=== PATIENT | female | born 2005 | race Caucasian/White ===

== ENCOUNTER 2023-02-04 17:56 | Emergency (ER) | payer BC, SELFPAY ==
[2023-02-04 17:56] VITALS: BP 121/68; PULSE 79; RESP 18; TEMP 37.3; O2SAT 99; BMI 22.1
[2023-02-04 18:26] LABS: Microscopic, Urine URINE MICROSCOPIC (MICROSCOPIC)
[2023-02-04 18:30] LABS: Appearance,Urine SL CLOUDY (Clear); Bilirubin,Urine Negative (Negative); Blood, Urine TRACE-I (Negative); Color,Urine YELLOW (Yellow); Glucose,Urine (UA) Negative (Negative); Ketones,Urine TRACE (Negative); Leukocyte Esterase,Urine 2+ (Negative); Nitrate,Urine Negative (Negative); Protein,Urine TRACE (Negative); Specific Gravity, Urine >= 1.030 (1.005-1.030); Urobilinogen,Urine 0.2 EU/dl (0.2)
--- NOTE | 2023-02-04 18:40 | EXP.UTC ---
Discharge Plan Disposition Patient Disposition: Home, Self-Care Condition: Good Prescriptions Prescriptions: New phenazopyridine [Pyridium] 200 mg tablet 200 mg PO Q8H 2 Days Qty: 6 0RF ciprofloxacin HCl [Cipro] 500 mg tablet 500 mg PO BID 7 Days Qty: 14 0RF mupirocin 2 % ointment 1 applic topical TID 7 Days Qty: 15 0RF No Action cephalexin 500 mg capsule 50 mg PO BID Patient Comments: TAKE 1 CAPSULE BY MOUTH EVERY 12 HOURS FOR 7 DAYS DIRECTED Referrals Follow up/Referrals: Patrice Tirado [Primary Care Provider] - See instructions Activity Restrictions/Add. Instructions Additional Instructions/Restrictions: Drink plenty of fluids. Take tylenol or ibuprofen for pain or fever. Stop the cephalexin that you are already on and start the cipro antibiotic. Take the medications as directed. Follow up with your regular doctor. GO TO THE ER FOR ANY WORSENING SYMPTOMS The pyridium will make your urine turn orange, this is an expected side effect. It will stain your clothes if it comes into contact with them. We will culture the urine. That will tell what bacteria is causing your infection and which antibiotics will treat it best. Sometimes the first antibiotic we prescribe turns out to not work against different bacteria. So, make sure you follow up within 3 days if you are not getting better. Clinical Impressions Clinical Impression: UTI (urinary tract infection), Folliculitis, Pharyngitis Instructions Patient Instructions: Urinary Tract Infection, DI for Strep Throat, DI for Folliculitis Discharge ED Provider: Eder Carrillo [facility] General Stated complaint: burning sensation when urinating Mode of Arrival: Ambulatory Source of Information: Patient Limitations: No Limitations Time Seen by Provider: 02/04/23 18:40 Description of Symptoms (Recalled from Triage Doc. by RN): Starting wed it che with urination, urinating blood, and has bumps present. She did stated that she shaved her pubic area and thinks they're in relation to that. She tested strep + and is currently on cephalexin. HEENT Symptoms (Recalled from RN notes): No Resp Symptoms (Recalled from RN notes): No Skin Symptoms (Recalled from RN notes): No MS Symptoms (Recalled from RN notes): No Functional Status (Recalled from RN notes): n/a History of Present Illness Provider Complaint: She states that for the past 3 days she has had sore throat, burning with urination, and multiple sore bumps on her pubic area. She was in [place] when her symptoms started. She went to a [facility] there and was started on keflex 2 days ago. She states that since then she has got worse instead of better. Her back is hurting worse and her urinary symptoms are getting worse. Related Data Home Medications Medication Instructions Recorded Confirmed cephalexin 500 mg capsule 50 mg PO BID abx 02/04/23 02/04/23 Previous Rx's Medication Instructions Recorded ciprofloxacin HCl 500 mg tablet 500 mg PO BID 7 days #14 tabs 02/04/23 (Cipro) mupirocin 2 % topical ointment 1 applic topical TID 7 days #15 02/04/23 grams phenazopyridine 200 mg tablet 200 mg PO Q8H 2 days #6 tabs 02/04/23 (Pyridium) Allergies Allergy/AdvReac Type Severity Reaction Status Date / Time No Known Allergies Allergy Verified 02/04/23 18:23 Worker's Comp Is this a Worker's Comp case?: No PFSH [facility] Disclaimer: The information contained in this section may have been updated after the patient was seen, as this information can be updated by other users. Social History Smoking Status: Never smoker alcohol intake: never current occupational status: student Travel in the last 8 weeks: None ROS Obtained: Yes All systems reviewed & no additional complaints except as documented Constitutional Constitutional: Denies chills and Denies fever(s) Eyes Eyes: Denies eye discharge ENT Ears, Nose, Mouth, and Throat: Reports as per HPI
[2023-02-04 18:49] LABS: Bacteria,Urine Trace /lpf
[2023-02-04 19:03] VITALS: BP 121/68; PULSE 79; RESP 18; TEMP 37.3; O2SAT 99
== END 2023-02-04 19:03 | disposition home or self-care (01) ==
PROVIDERS: Emergency Provider Nurse Practitioner Family; PCP Pediatrics
DX: N39.0 Urinary tract infection, site not specified (principal); M54.59 Other low back pain; J02.9 Acute pharyngitis, unspecified; L73.9 Follicular disorder, unspecified
CPT/HCPCS: 81001; 87086; 99204; 99212; G0463

== ENCOUNTER 2024-03-19 16:51 | Emergency (ER) | payer BC, SELFPAY ==
--- NOTE | 2024-03-19 17:41 | EXP.UTC ---
Discharge Plan Disposition Patient Disposition: Home, Self-Care Condition: Good Prescriptions Prescriptions: New phenazopyridine 200 mg Tablet 200 mg PO TID 2 Days Qty: 6 0RF cephalexin 500 mg capsule 500 mg PO QID 7 Days Qty: 40 0RF mupirocin 2 % ointment 1 applic topical TID 7 Days Qty: 15 0RF No Action cephalexin 500 mg capsule 50 mg PO BID Patient Comments: TAKE 1 CAPSULE BY MOUTH EVERY 12 HOURS FOR 7 DAYS DIRECTED phenazopyridine [Pyridium] 200 mg tablet 200 mg PO Q8H 2 Days Qty: 6 0RF ciprofloxacin HCl [Cipro] 500 mg tablet 500 mg PO BID 7 Days Qty: 14 0RF mupirocin 2 % ointment 1 applic topical TID 7 Days Qty: 15 0RF Referrals Follow up/Referrals: Patrice Tirado [Primary Care Provider] - See instructions Activity Restrictions/Add. Instructions Additional Instructions/Restrictions: Drink plenty of fluids. Take tylenol or ibuprofen for pain or fever. Take the medications as directed. Follow up with your regular doctor. GO TO THE ER FOR ANY WORSENING SYMPTOMS The pyridium will make your urine turn orange, this is an expected side effect. It will stain your clothes if it comes into contact with them. We will culture the urine. That will tell what bacteria is causing your infection and which antibiotics will treat it best.This test takes 3 days to complete. Apply the mupirocin ointment as directed to the affected areas of folliculitis. Clinical Impressions Clinical Impression: UTI (urinary tract infection), Folliculitis Stand Alone Forms Stand Alone Forms: Work/School Release Instructions Patient Instructions: DI for Folliculitis Print Language Print Language: Khmer Discharge ED Provider: Eder Carrillo [facility] General Stated complaint: poss UTI Time Seen by Provider: 03/19/24 17:41 Related Data Home Medications ?Medication ?Instructions ?Recorded ?Confirmed cephalexin 500 mg capsule 50 mg PO BID abx 02/04/23 02/04/23 Previous Rx's ?Medication ?Instructions ?Recorded ciprofloxacin HCl 500 mg tablet 500 mg PO BID 7 days #14 tabs 02/04/23 (Cipro) mupirocin 2 % topical ointment 1 applic topical TID 7 days #15 02/04/23 grams phenazopyridine 200 mg tablet 200 mg PO Q8H 2 days #6 tabs 02/04/23 (Pyridium) cephalexin 500 mg capsule 500 mg PO QID 7 days #40 caps 03/19/24 mupirocin 2 % topical ointment 1 applic topical TID 7 days #15 03/19/24 grams phenazopyridine 200 mg tablet 200 mg PO TID 2 days #6 tabs 03/19/24 Allergies Allergy/AdvReac Type Severity Reaction Status Date / Time No Known Allergies Allergy Verified 02/04/23 18:23 [facility] Disclaimer: The information contained in this section may have been updated after the patient was seen, as this information can be updated by other users. Social History (Updated 02/04/23 @ 19:02 by Eder Carrillo APRN) Smoking Status: Never smoker alcohol intake: never current occupational status: student Travel in the last 8 weeks: None ROS Obtained: Yes All systems reviewed & no additional complaints except as documented Constitutional Constitutional: Reports system reviewed and no additional complaints, except as documented, Denies chills and Denies fever(s) Eyes Eyes: Denies eye discharge ENT Ears, Nose, Mouth, and Throat: Denies dysphagia, Denies sore throat and Denies throat swelling Cardiovascular Cardiovascular: Denies chest pain and Denies dyspnea Respiratory Respiratory: Denies chest congestion, Denies cough and Denies dyspnea Gastrointestinal Gastrointestingal: Denies abdominal pain, constipation, diarrhea, dysphagia, nausea or vomiting Genitourinary Female Genitourinary: Reports as per HPI, Reports dysuria, Reports sexual dysfunction, Reports urinary frequency, Denies urinary incontinence and Reports urinary hesitancy Musculoskeletal Musculoskeletal: Denies arthralgias and Reports back pain Integumentary/Breasts Skin/Breast: Denies rash Neurologic Neurologic: Denies paresthesias Allergic/Immunologic Allergic/Immunologic: Denies throat swelling Physical Exam General General appearance: alert and in no apparent distress Head Head exam: atraumatic and normocephalic Eye Eye exam: Present normal appearance, PERRL and EOMI ENT ENT exam: Present normal exam, mucous membranes moist, TM's normal bilaterally and normal external ear exam Neck Neck exam: Present normal inspection, full ROM and trachea midline; Absent tenderness, meningismus or lymphadenopathy Chest Chest inspection: Present normal inspection and symmetric chest wall rise; Absent tenderness Respiratory Respiratory exam: Present normal lung sounds bilaterally; Absent respiratory distress, wheezes or stridor Cardiovascular Cardiovascular exam: Present regular rate, normal rhythm and normal heart sounds Abdominal Exam Abdominal exam: Present soft and normal bowel sounds; Absent distention, tenderness, guarding, rebound, rigidity, incision, psoas sign, obturator sign, heel tap sign, Shoemaker's sign, Rovsing's sign or tenderness at McBurney's Point Extremities Exam Extremities exam: Present normal inspection, full ROM and normal capillary refill; Absent tenderness, edema, joint swelling, calf tenderness or cyanosis Back Exam Back exam: Present normal inspection and full ROM; Absent tenderness, CVA tenderness (R) or CVA tenderness (L) Neurological Exam Neurological exam: Present alert, oriented X3 and normal gait Psychiatric Psychiatric exam: Present normal affect and normal mood Skin Skin exam: Present warm, dry, intact and normal color Lymphatic Lymphatic Findings: no adenopathy Medical Decision Making Medical Records Medical records reviewed: No I reviewed the patient's medical records. Screening: Per USPSTF and CDC recommendations, given the prevalence of disease in our region, it is our hospital?s policy to screen for HIV and viral Hepatitis for all patients aged 18 and over and those with ongoing risk factors. Rbyn Inquiry Pt receiving controlled substance: No Lab Data Lab results reviewed: Yes I reviewed the patient's lab results.
[2024-03-19 17:45] VITALS: BP 133/86; PULSE 77; RESP 20; TEMP 37; O2SAT 98; BMI 26.3
[2024-03-19 17:58] LABS: Color,Urine Yellow (Yellow)
[2024-03-19 17:59] LABS: Apearance,Urine Cloudy (Clear); Bilirubin,Urine Negative (Negative); Blood, Urine Negative (Negative); Glucose,Urine (UA) Negative (Negative); Ketones,Urine Negative (Negative); Protein,Urine 2+ (Negative); UTC Leukocyte Esterase,Urine Trace (Negative); UTC Nitrate,Urine Negative (Negative); Urobilinogen,Urine 0.2 EU/dl (0.2)
[2024-03-19 18:02] VITALS: BP 133/86; PULSE 77; RESP 20; TEMP 37; O2SAT 98
== END 2024-03-19 18:06 | disposition home or self-care (01) ==
PROVIDERS: Emergency Provider Nurse Practitioner Family; PCP Pediatrics
DX: N39.0 Urinary tract infection, site not specified (principal)
CPT/HCPCS: 81003; 87086; 87088; 87186; 99213; G0381

== ENCOUNTER 2024-05-14 11:53 | Emergency (ER) | payer BC, SELFPAY ==
[2024-05-14 12:08] VITALS: BP 126/80; PULSE 82; RESP 18; TEMP 36.6; O2SAT 100; BMI 26.3
[2024-05-14 12:14] LABS: Apearance,Urine Clear (Clear); Color,Urine Yellow (Yellow); PH,Urine 5.5 (5.0-8.5)
[2024-05-14 12:15] LABS: Bilirubin,Urine Negative (Negative); Blood, Urine Trace (Negative); Glucose,Urine (UA) Negative (Negative); Ketones,Urine Negative (Negative); Protein,Urine Negative (Negative); UTC Leukocyte Esterase,Urine 1+ (Negative); UTC Nitrate,Urine Negative (Negative); Urobilinogen,Urine 0.2 EU/dl (0.2)
[2024-05-14 12:16] LABS: UTC Strep Screen (Rapid) Negative (Negative)
--- NOTE | 2024-05-14 12:20 | ED_ITS ---
Discharge Plan Disposition Patient Disposition: Home, Self-Care Condition: Good Prescriptions Prescriptions: New cefdinir 300 mg capsule 300 mg PO BID Qty: 20 0RF Referrals Follow up/Referrals: Patrice Tirado [Primary Care Provider] - See instructions Activity Restrictions/Add. Instructions Additional Instructions/Restrictions: Increase fluids, water and not soda or tea. Can drink cranberry juice or cranberry extract. Wipe front to back Wear cotton underwear Empty bladder after intercourse Start antibiotics immediately and make sure you take the full course although you may start to see improvement over the next 48 hours. You can eat yogurt or take probiotics to decrease diarrhea or yeast infection caused by the antibiotic Be sure to follow-up anytime for new or worsening symptoms in 48 hours for wound urine culture results be sure to let you PCP no recent urine for culture so they can request records and ensure that you have appropriate antibiotic if you are not getting better or getting worse. If symptoms worsen or do not improve return or be seen in the ER. Follow-up with primary care this week. Clinical Impressions Clinical Impression: UTI (urinary tract infection), Pharyngitis Instructions Patient Instructions: DI for Urinary Tract Infection (UTI), DI for Pharyngitis/Tonsillopharyngitis -- Adult Print Language Print Language: Eritrean Discharge ED Provider: Rafael ([facility])Gildardo [facility] HPI General Stated complaint: sore throat, cough Mode of Arrival: Ambulatory Source of Information: Patient Time Seen by Provider: 05/14/24 12:07 Description of Symptoms (Recalled from Triage Doc. by RN): SORE THROAT, UTI S/S HEENT Symptoms (Recalled from RN notes): Yes Resp Symptoms (Recalled from RN notes): No Skin Symptoms (Recalled from RN notes): No MS Symptoms (Recalled from RN notes): No Functional Status (Recalled from RN notes): WNL History of Present Illness Provider Complaint: 18-year-old female presents for sore throat, nasal irritation, and burning with urination Related Data Previous Rx's ?Medication ?Instructions ?Recorded cefdinir 300 mg capsule 300 mg PO BID #20 caps 05/14/24 Allergies Allergy/AdvReac Type Severity Reaction Status Date / Time No Known Allergies Allergy Verified 02/04/23 18:23 Worker's Comp Is this a Worker's Comp case?: No [facility] Disclaimer: The information contained in this section may have been updated after the patient was seen, as this information can be updated by other users. Surgical History , ACCOUNT MANAGER) Hx of cardiac cath Social History , ACCOUNT MANAGER) Smoking Status: Never smoker alcohol intake: never current occupational status: student Travel in the last 8 weeks: None Have you lived/traveled outside US in past 30 days?: No Contact w/someone who lives/traveled outside US past 30 days?: No Exposure to someone with infectious disease in past 14 days?: No Do you have a fever (greater than 100.4 F or 38 C)?: No Have you tested positive for COVID-19: No Exposed to someone with COVID-19 in past 14 days?: No Do you have a sore throat?: Yes Do you have a cough?: Yes Do you have any weakness?: No Do you have any diarrhea?: No Are you experiencing any unusual bleeding?: No Do you have any muscle aches/pain?: No Do you have any abdominal pain?: No Are you experiencing loss of taste or smell?: No ROS Obtained: Yes Systems reviewed as appropriate & no additional complaints except as documented Constitutional Constitutional: Reports system reviewed and no additional complaints, except as documented and Reports as per HPI ENT Ears, Nose, Mouth, and Throat: Reports system reviewed and no additional complaints, except as documented, Reports as per HPI and Reports sore throat Genitourinary Female Genitourinary: Reports system reviewed and no additional complaints, except as documented, Reports as per HPI and Reports dysuria Physical Exam General General appearance: alert and in no apparent distress Eye Eye exam: Present normal appearance ENT ENT exam: Present normal oropharynx, mucous membranes moist and TM's normal bilaterally Expanded ENT Exam Comment: Pharynx red Respiratory Respiratory exam: Present normal lung sounds bilaterally Cardiovascular Cardiovascular exam: Present regular rate and normal rhythm Abdominal Exam Abdominal exam: Present soft Back Exam Back exam: Absent CVA tenderness (R) or CVA tenderness (L) Neurological Exam Neurological exam: Present alert and oriented X3 Skin Skin exam: Present warm and intact Medical Decision Making Medical Records Medical records reviewed: Yes I reviewed the patient's medical records. Screening: Per USPSTF and CDC recommendations, given the prevalence of disease in our region, it is our hospital?s policy to screen for HIV and viral Hepatitis for all patients aged 18 and over and those with ongoing risk factors. Bryn Inquiry Pt receiving controlled substance: No Vital Signs: 05/14/24 12:08 Temperature 97.9 F Temperature Source Oral Pulse Rate [Left Radial] 82 Respiratory Rate 18 Blood Pressure [Left Arm] 126/80 Blood Pressure Mean [Left Arm] 95 02 Sat by Pulse Oximetry 100 Lab Data Lab results reviewed: Yes I reviewed the patient's lab results. Lab Results 05/14/24 12:11: Urine Color Yellow, Urine Appearance Clear, Urine pH 5.5, Ur Specific [place] 1.030, Urine Protein Negative, Urine Glucose (UA) Negative, Urine Ketones Negative, Urine Blood Trace, Urine Nitrate Negative, Urine Bilirubin Negative, Urine Urobilinogen 0.2, Ur Leukocyte Esterase 1+ A, Strep Scn Rapid Clinic Negative Orders (Tests/Meds): ORDERS Category Date Time Status Strep Screen Confirmation Stat Micro 05/14/24 12:11 Received Urine Culture Stat Micro 05/14/24 12:06 Received
[2024-05-14 12:26] VITALS: BP 126/80; PULSE 82; RESP 18; TEMP 36.6
--- NOTE | 2024-05-18 16:20 | PC.NURSE ---
REVIEWED PATIENT'S URINE AND THROAT CULTURES WITH Rayo KRISHNAN APRN. PATIENT IS CURRENTLY ON CEFDINIR. NO CHANGES NEEDED AT THIS TIME
== END 2024-05-14 12:27 | disposition home or self-care (01) ==
PROVIDERS: Emergency Provider Nurse Practitioner Family; PCP Pediatrics
DX: N39.0 Urinary tract infection, site not specified (principal); J02.9 Acute pharyngitis, unspecified
CPT/HCPCS: 81003; 87070; 87077; 87086; 87088; 87186; 87880; 99213; G0381

== ENCOUNTER 2025-02-04 19:52 | Emergency (ER) | payer BC, SELFPAY ==
[2025-02-04 19:58] VITALS: BP 120/80; PULSE 82; RESP 18; TEMP 36.8; O2SAT 99; BMI 26.5
--- NOTE | 2025-02-04 20:02 | PC.NURSE ---
Pt states she is unable to leave a urine sample at this time.
--- NOTE | 2025-02-04 20:21 | CT_ITS ---
PROCEDURE INFORMATION: Exam: CT Abdomen And Pelvis With Contrast Exam date and time: 02/04/2025 9:57 PM Age: 19 years old Clinical indication: Abdominal pain; Additional info: Right flank and abd pain TECHNIQUE: Imaging protocol: Computed tomography of the abdomen and pelvis with contrast. Radiation optimization: All CT scans at this facility use at least one of these dose optimization techniques: automated exposure control; mA and/or kV adjustment per patient size (includes targeted exams where dose is matched to clinical indication); or iterative reconstruction. Contrast material: ISOVUE; Contrast volume: 75 ml; Contrast route: IV; COMPARISON: No relevant prior studies available. FINDINGS: Lungs: The visualized lung bases demonstrate no focal infiltrates or pleural effusions. Liver: The liver appears within normal limits. Gallbladder and biliary ducts: Normal. No calcified stones. No ductal dilation. Pancreas: The pancreas is normal. Spleen: The spleen is normal. Adrenal glands: The adrenal glands appear within normal limits. Kidneys and ureters: 1 mm nonobstructing stone right kidney lower pole. Otherwise kidneys normal. Stomach and bowel: The stomach appears within normal limits. No wall thickening or inflammatory change. Appendix: No evidence of appendicitis. Intraperitoneal space: No free air. No evidence for focal fluid collection or ascites. No evidence for omental thickening. Vasculature: Unremarkable. No abdominal aortic aneurysm. Lymph nodes: Unremarkable. No enlarged lymph nodes. Urinary bladder: The bladder appears within normal limits. No wall thickening. Reproductive: The uterus and adnexal structures appear normal. Bones/joints: Mild levo rotary scoliosis lumbar spine. Partially visualized postoperative changes left hip. Soft tissues: Unremarkable. IMPRESSION: 1. No acute inflammatory process identified within the abdomen or pelvis. 2. 1 mm nonobstructing stone right kidney lower pole. Otherwise kidneys normal.
[2025-02-04 20:34] LABS: Microscopic, Urine URINE MICROSCOPIC (MICROSCOPIC)
[2025-02-04 20:36] LABS: Hematocrit 39.6 % (37.0-47.0); Hemoglobin 13.0 g/dL (12.2-16.2); Immature Granulocytes % 0.1 %; Mean Corpuscular HGB Conc 32.8 g/dL (31.8-35.4); Mean Corpuscular Hemoglobin 28.1 pg (27.0-31.2); Mean Corpuscular Volume 85.7 fl (81-99); Nucleated Red Blood Cells % 0 %; Platelet Count 344 K/mm3 (142-424); Red Blood Count 4.62 M/mm3 (4.20-5.40); Red Cell Distribution Width-SD 40.3 fL; White Blood Count 9.7 K/mm3 (4.8-10.8)
[2025-02-04 20:38] LABS: Bilirubin,Urine Negative (Negative); Color,Urine YELLOW (Yellow); Glucose,Urine (UA) Negative (Negative); Ketones,Urine Negative (Negative); Leukocyte Esterase,Urine Negative (Negative); PH,Urine 5.5 (5.0-8.5); Protein,Urine Negative (Negative); Specific Gravity, Urine <= 1.005 (1.005-1.030); Urobilinogen,Urine 0.2 EU/dl (0.2)
[2025-02-04 20:45] LABS: Albumin Level 4.8 g/dl (3.5-5.0); Chloride 97 mmol/L (98-107)
[2025-02-04 20:46] LABS: Potassium 3.6 mmoL/L (3.5-5.1); Sodium 137 mmol/L (136-145)
[2025-02-04 20:48] LABS: Alanine Aminotransferase 15 U/L (12-78); Albumin/Globulin Ratio 1.2 (1.1-1.8); Alkaline Phosphatase 112 U/L (38-126); Anion Gap 15.6 mEq/L (5-15); Aspartate Amino Transferase 27 U/L (14-36); Bilirubin,Total 0.2 mg/dl (0.2-1.3); Carbon Dioxide 28 mmol/L (22.0-30.0); Globulin 4.1 g/dL (1.3-3.2); HCG Qualitative, Serum Negative (Negative); Lipase 167 U/L (23-300); Total Protein,Serum 8.9 g/dl (6.3-8.2)
[2025-02-04 20:49] LABS: Calcium 9.6 mg/dl (8.4-10.2); Glucose 87 mg/dl (74-100)
[2025-02-04 21:12] LABS: Bacteria,Urine Trace /lpf; RBC,Urine Occasional #/hpf (0-3); WBC,Urine Occasional #/hpf (0-3)
[2025-02-04 21:31] LABS: Blood Urea Nitrogen 6 mg/dl (7-17); Creatinine Clearance Estimated 115 mL/min (50-200); Creatinine,Serum 0.80 mg/dl (0.52-1.04); Estimated Glomerular Filt Rate 91 ml/min (>60); GFR (African American) 110 ML/MIN (>60)
[2025-02-04] MEDS: SODIUM CHLORIDE 0.9% 10ML SYR (RAD ONLY) 10 ML IV (21:57)
[2025-02-04] MEDS: IOPAMIDOL-370 (76%);100ML BOTTLE 75 ML IV (21:57)
--- NOTE | 2025-02-04 23:13 | ED_ITS ---
Discharge Plan Disposition Patient Disposition: Home, Self-Care Condition: Good Prescriptions Prescriptions: New methocarbamol 750 mg tablet 1,500 mg PO TID 7 Days Qty: 42 0RF Referrals Follow up/Referrals: Provider,Referral, MD [Primary Care Provider, Medical] - See instructions Activity Restrictions/Add. Instructions Additional Instructions/Restrictions: You may take robaxin to assist with pain relief. You can take 1500 mg up to three times daily for symptomatic control. If you experience worsening flank pain, urinary sympotms, fevers, or migratory pain into the lower quadrants please return to the ER for further evaluation. Clinical Impressions Clinical Impression: Abdominal wall pain Instructions Patient Instructions: DI for Acute Abdominal Pain Print Language Print Language: Irish Discharge ED Provider: Virgilio Lopez Adult HPI General Chief complaint: Abdominal Pain Stated complaint: abdominal pain and back pain Time Seen by Provider: 02/04/25 20:15 Mode of Arrival: Ambulatory Source of Information: Patient Description of Symptoms (Recalled from ER Triage Doc. by RN): Pt presents with c/o abdominal pain that started today. Pt states pain radiates to her back. Pt states she was seen by urgent care and was negative for a UTI. Pt is having RLQ tenderness and states pain is worse when she walks. History of Present Illness HPI narrative: This is a 19-year-old female patient, with a past medical history of [id number]-[id number]-Lqhiu syndrome, who is presenting to the emergency department today for evaluation of pain around the right flank and right upper quadrant of the abdomen. The patient states that this pain has become quite severe this evening. She is not having much in the way of accompanying symptoms and specifically denies nausea vomiting, diarrhea, and constipation. She is not experiencing any hematuria, dysuria, or urinary frequency. She is currently menstruating but is not having any unusual vaginal discharge beyond this. Interestingly, she tells me that this pain gets worse when she lifts her right arm above her head and it also gets worse with movement of the torso. Related Data Previous Rx's ?Medication ?Instructions ?Recorded methocarbamol 750 mg tablet 1,500 mg (2 x 750 mg) PO T ID 7 02/04/25 days #42 tabs Allergies Allergy/AdvReac Type Severity Reaction Status Date / Time No Known Allergies Allergy Verified 02/04/25 19:36 [facility] Disclaimer: The information contained in this section may have been updated after the patient was seen, as this information can be updated by other users. Surgical History Hx of cardiac cath Social History Smoking Status: Never smoker alcohol intake: never current occupational status: student Travel in the last 8 weeks?: None Have you lived/traveled outside [place] in past 30 days?: No Contact w/someone who lives/traveled outside [place] past 30 days?: No Exposure to someone with infectious disease in past 14 days?: No Do you have a fever (greater than 100.4 F or 38 C)?: No Have you tested positive for COVID-19?: No Exposed to someone with COVID-19 in past 14 days?: No Do you have a sore throat?: No Do you have a cough?: No Do you have any weakness?: No Do you have any diarrhea?: No Are you experiencing any unusual bleeding?: No Do you have any muscle aches/pain?: Yes Do you have any abdominal pain?: Yes Are you experiencing loss of taste or smell?: No ROS Obtained: Yes Systems reviewed as appropriate & no additional complaints except as documented Physical Exam General General appearance: other (See MDM) Respiratory Respiratory exam: Present other (See MDM) Cardiovascular Cardiovascular exam: Present other (See MDM) Neurological Exam Neurological exam: Present other (See MDM) Medical Decision Making Medical Records Medical records reviewed: Yes I reviewed the patient's medical records. Screening: Per USPSTF and CDC recommendations, given the prevalence of disease in our region, it is our hospital?s policy to screen for HIV and viral Hepatitis for all patients aged 18 and over and those with ongoing risk factors. Bryn Inquiry Pt receiving controlled substance: No Bryn was queried for this patient: No Vital Signs: 02/04/25 19:58 02/04/25 23:14 Temperature 98.3 F 98.4 F Temperature Source Tympanic Temporal Artery Scan Pulse Rate 68 Pulse Rate [Right] 82 Respiratory Rate 18 16 Blood Pressure 112/75 Blood Pressure [Right Arm] 120/80 Blood Pressure Mean [Right Arm] 93 Blood Pressure Source [Right Arm] Automatic Cuff Blood Pressure Position Sitting Blood Pressure Position [Right Arm] Sitting 02 Sat by Pulse Oximetry 99 Oxygen Delivery Method Room Air Room Air Lab Data Lab Results 02/04/25 20:25: WBC 9.7, RBC 4.62, Hgb 13.0, Hct 39.6, MCV 85.7, MCH 28.1, MCHC 32.8, RDW 13.1, Plt Count 344, MPV 10.1, Neut % (Auto) 57.4, Lymph % (Auto) 34.1, [place] % (Auto) 6.4, Eos % (Auto) 1.6, Baso % (Auto) 0.4, Neut # (Auto) 5.6, Lymph # (Auto) 3.3, [place] # (Auto) 0.6, Eos # (Auto) 0.2, Baso # (Auto) 0.0, Sodium 137, Potassium 3.6, Chloride 97 L, Carbon Dioxide 28, Anion Gap 15.6 H, B UN 6 L, Creatinine 0.80, Estimated Creat Clear 115, Estimated GFR 91, Est GFR ( Amer) 110, Glucose 87, Calcium 9.6, Total Bilirubin 0.2, AST 27, ALT 15, Alkaline Phosphatase 112, Total Protein 8.9 H, Albumin 4.8, Globulin 4.1 H, Albumin/Globulin Ratio 1.2, Lipase 167, Serum HCG, Qual Negative, Urine Color Yellow, Urine Appearance Clear, Urine pH 5.5, Ur Specific [place] <= 1.005, Urine Protein Negative, Urine Glucose (UA) Negative, Urine Ketones Negative, U rine Blood 1+ A, Urine Nitrate Negative, Urine Bilirubin Negative, Urine Urobilinogen 0.2, Ur Leukocyte Esterase Negative, Urine RBC Occasional, Urine WBC Occasional, Ur Squamous Epith Cells 3-5, Urine Bacteria Trace 02/04/25 20:25 02/04/25 20:25 Orders (Tests/Meds): ED MEDICATIONS Discontinued Medications Generic Name Dose Route Start Last Admin Trade Name Freq PRN Reason Stop Dose Admin Iopamidol 75 ml 02/04/25 21:56 02/04/25 21:57 Iopamidol-370 (76%);100ml Bottle IV 02/04/25 21:57 75 ml ONCE ONE Administration Sodium Chloride 10 ml 02/04/25 21:56 02/04/25 21:57 Sodium Chloride 0.9% 10ml Syr (Rad Only) IV 02/04/25 21:57 10 ml ONCE ONE Administration ORDERS Category Date Time Status CT abdomen pelvis w con Stat Cat Scan 02/04/25 20:21 Completed CBC w/Auto Diff [Complete Blood Count Auto Diff] Stat Lab 02/04/25 20:25 Completed CMP [Comprehensive Metabolic Panel] Stat Lab 02/04/25 20:25 Completed Chlam/Gono/Trich/Myco, JENNIFER, Ur Routine Lab 02/04/25 19:28 Received HCG Qualitative, Serum Stat Lab 02/04/25 20:25 Completed Lipase Stat Lab 02/04/25 20:25 Completed Urinalysis and Microscopic Stat Lab 02/04/25 20:25 Completed Urine Culture Routine Micro 02/04/25 19:28 Received Medical Decision Narrative: In summary, this is a 19-year-old female patient who is presenting to the emergency department today for evaluation of right flank and right sided abdominal pain. 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 On initial evaluation of the patient they were resting comfortably in no acute distress and nontoxic in appearance. They are hemodynamically stable, saturating well room air, and are neurologically intact. On physical examination the patient she is appropriately alert and interactive with a GCS of 15. Heart and lungs are clear to auscultation bilaterally. She appears well-hydrated. She has no tenderness in the right lower quadrant or left lower quadrant. She has marginal tenderness in the right upper quadrant with no Shoemaker sign. She has CVA tenderness on the right. She also has tenderness about the right lateral rib cage and in the region of the quadratus lumborum on the right. Differential diagnosis includes ureterolithiasis, pyelonephritis, urinary tract infection, cholecystitis, choledocholithiasis, among others. Workup was initiated with hematologic labs as well as a CT scan of the abdomen and pelvis. Labs were personally interpreted by me and demonstrate no leukocytosis or actionable anemia. She has no electrolyte derangements or acute kidney injury. No transaminitis or elevation of alkaline phosphatase or bilirubin. Serum hCG is negative which effectively rules out intrauterine as well as ectopic as the cause of her symptoms. Her urine shows trace bacteria with occasional white cells but no nitrates or leukocyte esterase so I do not feel that this is consistent with urinary tract infection. CT scan of the abdomen and pelvis was personally interpreted by me and demonstrates no large pneumoperitoneum. Official radiology read is in agreement and states that the patient has no acute abnormalities. They do note that she has a nonobstructing stone in the inferior pole of the right kidney. I do not feel that this is contributing to her pain as this kidney stone is not actively in the ureter. Given that her pain is positional in nature this could be musculoskeletal. Therefore we will trial her on Robaxin in the outpatient setting. I given strict return precautions in the event that she experiences worsening pain, fevers, or evolution of symptoms. Patient acknowledges understanding. At this time all questions have been answered and all parties are agreeable with the decision to discharge home Critical Care Critical Care Time Critical Care Time: No
[2025-02-04 23:14] VITALS: BP 112/75; PULSE 68; RESP 16; TEMP 36.9; O2SAT 99
[2025-02-04] MEDS: METHOCARBAMOL 500MG TABLET 1500 MG PO (23:28)
== END 2025-02-04 23:30 | disposition home or self-care (01) ==
PROVIDERS: Student in an Organized Health Care Education/Training Program; Emergency Provider Student in an Organized Health Care Education/Training Program
DX: R10.811 Right upper quadrant abdominal tenderness (principal); R10.8A1 Right flank tenderness; N20.0 Calculus of kidney
CPT/HCPCS: 74177; 80053; 81001; 83690; 84703; 85025; 87086; 87088; 87186; 87491; 87563; 87591; 87661; 99284; Q9967